=== PATIENT | male | born 1955 | race Caucasian/White ===

== ENCOUNTER 2023-04-28 19:24 | Emergency (ER) | payer OTHER, SELFPAY ==
[2023-04-28] VITALS (9 sets, daily range): BP systolic 126–177; BP diastolic 79–95; PULSE 53–64; RESP 16–18; TEMP 36.8; O2SAT 97–99; BMI 26.6
--- NOTE | 2023-04-28 19:28 | DI.RAD.S_ITS ---
PROCEDURE: XR CHEST 1V INDICATIONS: chest pain TECHNIQUE: One view of the chest was acquired. COMPARISON: None. FINDINGS: Surgical changes and devices: None. Lungs and pleura: Lungs are clear. No pleural effusions or pneumothorax. Mediastinum: Mediastinal contours appear normal. Heart size is normal. Bones and chest wall: No suspicious bony lesions. Overlying soft tissues appear unremarkable. IMPRESSION: 1. No acute cardiopulmonary disease. Dictated by: Arden Cleveland M.D. on 04/28/2023 at 21:02 Approved by: Arden Cleveland M.D. on 04/28/2023 at 21:02
[2023-04-28] MEDS: ASPIRIN 81 MG CHEW TAB 324 MG PO (19:42)
[2023-04-28 20:00] LABS: Add Manual Diff / Slide Review NO; Basophils Absolute Auto 0 /uL (0-100); Basophils Percent Auto 0.7 % (0-2); Eosinophils Absolute Auto 100 /uL (0-450); Eosinophils Percent Auto 1.3 % (2-4); Hematocrit 41.9 % (41-53); Hemoglobin 14.3 g/dL (13.5-17.5); Lymphocytes Absolute Auto 2100 /uL (1100-4500); Lymphocytes Percent Auto 32.9 % (25-40); Mean Corpuscular HGB Conc 34.2 % (30-36); Mean Corpuscular Hemoglobin 29.8 PG (26-34); Mean Corpuscular Volume 87.2 fL (80-100); Monocytes Absolute Auto 600 /uL (0-900); Monocytes Percent Auto 9.4 % (3-14); Neutrophils Absolute Auto 3600 /uL (1500-7000); Neutrophils Percent Auto 55.7 % (50-75); Platelet Count 230 X10^3/uL (150-400); Red Cell Distribution Width 15.1 % (11.6-14.8); White Blood Cell Count 6.4 X10^3/uL (4.5-11.0)
[2023-04-28 20:12] LABS: Prothrombin Time 11.7 SECONDS (10.1-12.7)
[2023-04-28 20:15] LABS: PTT Partial Thromboplastin Tim 30 SECONDS (26-36)
[2023-04-28 20:16] LABS: Alanine Aminotransferase 20 IU/L (<50); Albumin 4.2 g/dL (3.5-5.0); Albumin Globulin Ratio 1.4 (1.0-2.8); Alkaline Phosphatase 49 U/L (38-126); Aspartate Aminotransferase 32 IU/L (17-59); BUN Creatinine Ratio 12.7 (6-22); Bilirubin Total 0.9 mg/dL (0.2-1.3); Blood Urea Nitrogen 15 mg/dL (9-20); Calcium 8.5 mg/dL (8.4-10.2); Carbon Dioxide 27 mmol/L (22-32); Chloride 103 mmol/L (98-107); Creatine Kinase 150 U/L (55-170); Estimated Glomerular Filt Rate > 60 mL/min (>60); Globulin 2.9 g/dL (1.7-4.1); Glucose 79 mg/dL (80-110); HEMOLYSIS 18 (0-50); Lipase 195 U/L (23-300); Magnesium 2.3 mg/dL (1.6-2.3); Potassium 3.9 mmol/L (3.4-5.1); Sodium 136 mmol/L (137-145); Total Protein 7.1 g/dL (6.3-8.2)
[2023-04-28 20:27] LABS: Troponin I < 0.012 ng/mL (0.01-0.034)
--- NOTE | 2023-04-28 21:09 | PC.NURSE ---
Pt's pcp called and was given update.
--- NOTE | 2023-04-28 21:11 | ED_ITS ---
HPI - Chest Pain General Chief Complaint: Chest Pain Stated Complaint: heart attack Time Seen by Provider: 04/28/23 21:11 Source: patient Mode of arrival: Ambulatory History of Present Illness HPI narrative: Patient 68-year-old male history of hypertension presenting today with 3 days of chest discomfort. Actually is very active manda does yoga he actually did 45 minutes abuse today walk 3 miles today. Had no discomfort with exertion he has not needed to be stopped all. Her last 3 days has had some chest discomfort left side of his chest radiating through to his back. Not reproducible with palpation or movement. No significant shortness of breath no nausea or vomiting. He reports that he did travel about 3-4 weeks ago. Today he is also having some discomfort in his left arm and left leg. He does not really call it numbness or tingling he has no weakness. He feels like his left eye heavy but has no loss of vision or foggy vision. He is no difficulty ambulating. [place] apparently [place] boat his primary care provider is at [facility] and has called a handful of times. Related Data Home Medications Medication Instructions Recorded Confirmed evolocumab 140 mg/mL subcutaneous See Rx Instructions .Route .COMPLEX 04/28/23 04/28/23 pen injector (Repatha SureClick) lisinopril 20 mg tablet 40 mg PO DAILY 04/28/23 04/28/23 thyroid (pork) 90 mg tablet (HAT CLEANER 90 mg PO DAILY 04/28/23 04/28/23 Thyroid) Allergies Allergy/AdvReac Type Severity Reaction Status Date / Time No Known Drug Allergies Allergy Verified 04/28/23 19:35 Review of Systems Review of Systems ROS Unobtainable: All systems reviewed & are unremarkable except as noted in HPI and below Patient History Medical History High blood pressure High cholesterol Hypothyroid Exam Initial Vital Signs Initial Vital Signs: Vital Signs Temperature 98.2 F 04/28/23 19:31 Pulse Rate 61 04/28/23 19:31 Respiratory Rate 18 04/28/23 19:31 Blood Pressure 177/95 H 04/28/23 19:31 Pulse Oximetry 98 04/28/23 19:31 Oxygen Delivery Method Room Air 04/28/23 19:31 GENERAL: Well-appearing, well-nourished and in no acute distress. HEENT: Head atraumatic,EOMI, pupils reactive, face symmetric, moist mucous membranes CARDIOVASCULAR: Regular rate and rhythm without murmurs, rubs or gallops. RESPIRATORY: Breath sounds equal bilaterally, no wheezes rales or rhonchi. ABDOMEN: Soft, nontender. Normoactive bowel sounds all 4 quadrants. No guarding or rebound. EXTREMITIES: Normal range of motion, no clubbing or edema. Neurovascularly intact NEUROLOGICAL: Alert and oriented x4.Normal gait and speech. Cranial nerves II through XII grossly intact. Good [id number], good [id number], strength equal bilaterally, no dysarthria or aphasia, sensation in tact to soft touch bilaterally, no visual changes, no facial droop SKIN: Warm, dry, no laceration, no petechiae, no rashes or lesions. Scores HEART Score Heart Score history: Slightly Suspicious Heart Score EKG: Normal Heart Score Age: > or = 65 years old Heart Score risk factors: 1-2 risk factors Heart Score troponin: < or = to normal limit Heart Score Total: 3 NIH Stroke Scale Level of Conciousness: Alert, keenly responsive Ask month/age: Answers both questions correctly. Open/close eyes, close hand: Performs both tasks correctly Best gaze horizontal: Normal Visual leal: No visual loss Facial palsy: Normal symetrical movement Left arm drift: No drift for full 10 sec Right arm drift: No drift for full 10 sec Left leg drift: No drift for full 5 sec Right leg drift: No drift for full 5 sec Limb ataxia: Absent Sensory on face/arms/legs: Normal, no sensory loss Best language: No aphasia, normal Dysarthria: Normal Extinction or inattention: No abnormality Total NIH Stroke scale score: 0 Course Orders Ordered: ED Orders 04/28/23 19:28 XR chest 1V Stat EKG-12 Lead Stat 04/28/23 19:50 Complete Blood Count AUTO DIFF Stat Comprehensive Metabolic Panel Stat D Dimer Stat Lipase Stat Magnesium Stat PTT Partial Thromboplastin Ector Stat Prothrombin Time INR Stat Troponin & CK Cardiac Panel Stat 04/28/23 21:55 Trop I [Troponin I] Stat 04/28/23 22:00 EKG-12 Lead Stat Discontinued Medications Aspirin (Aspirin 81 Mg Chew Tab) 324 mg PO NOW ONE Stop: 04/28/23 19:29 Last Admin: 04/28/23 19:42 Dose: 324 mg Documented By: RAÚL Vital Signs Vital signs: Vital Signs - 8 hr 04/28/23 19:31 04/28/23 19:54 04/28/23 19:58 Temperature 98.2 F Pulse Rate 61 59 L 59 L Respiratory Rate 18 Blood Pressure 177/95 H Pulse Oximetry 98 99 98 Oxygen Delivery Method Room Air 04/28/23 19:58 04/28/23 20:00 04/28/23 20:00 Temperature Pulse Rate 56 L Respiratory Rate 16 Blood Pressure 138/84 141/88 H Pulse Oximetry 98 Oxygen Delivery Method Room Air 04/28/23 20:30 04/28/23 20:30 04/28/23 21:00 Temperature Pulse Rate 53 L Respiratory Rate Blood Pressure 126/79 162/91 H Pulse Oximetry 97 Oxygen Delivery Method Room Air 04/28/23 21:00 04/28/23 21:30 04/28/23 21:30 Temperature Pulse Rate 61 64 Respiratory Rate Blood Pressure 142/93 H Pulse Oximetry 98 99 Oxygen Delivery Method 04/28/23 22:00 04/28/23 22:00 04/28/23 22:30 Temperature Pulse Rate 53 L 53 L Respiratory Rate Blood Pressure 128/81 Pulse Oximetry 97 97 Oxygen Delivery Method MDM - Chest Pain Lab Data 04/28/23 19:50 04/28/23 19:50 Labs: Lab Results 04/28/23 04/28/23 04/28/23 Range/Units 19:50 19:50 19:50 WBC 6.4 (4.5-11.0) X10^3/uL RBC 4.80 (4.5-5.9) X10^6/uL Hgb 14.3 (13.5-17.5) g/dL Hct 41.9 (41-53) % MCV 87.2 (80-100) fL MCH 29.8 (26-34) PG MCHC 34.2 (30-36) % RDW 15.1 H (11.6-14.8) % Plt Count 230 (150-400) X10^3/uL Neut % (Auto) 55.7 (50-75) % Lymph % (Auto) 32.9 (25-40) % Cochran % (Auto) 9.4 (3-14) % Eos % (Auto) 1.3 L (2-4) % Baso % (Auto) 0.7 (0-2) % Neut # (Auto) 3600 (8800-5480) /uL Lymph # (Auto) 2100 (4907-8814) /uL Cochran # (Auto) 600 (0-900) /uL Eos # (Auto) 100 (0-450) /uL Baso # (Auto) 0 (0-100) /uL PT 11.7 (10.1-12.7) SECONDS INR 1.0 (0.9-1.3) APTT 30 (26-36) SECONDS D-Dimer (<500) ng/ml Sodium 136 L (137-145) mmol/L Potassium 3.9 (3.4-5.1) mmol/L Chloride 103 (98-107) mmol/L Carbon Dioxide 27 (22-32) mmol/L BUN 15 (9-20) mg/dL Creatinine 1.18 (0.66-1.25) mg/dL Estimated GFR > 60 (>60) mL/min BUN/Creatinine Ratio 12.7 (6-22) Glucose 79 L (80-110) mg/dL Calcium 8.5 (8.4-10.2) mg/dL Magnesium 2.3 (1.6-2.3) mg/dL Total Bilirubin 0.9 (0.2-1.3) mg/dL AST 32 (17-59) IU/L ALT 20 (<50) IU/L Alkaline Phosphatase 49 (38-126) U/L Total Creatine Kinase 150 (55-170) U/L Troponin I < 0.012 (0.01-0.034) ng/mL Total Protein 7.1 (6.3-8.2) g/dL Albumin 4.2 (3.5-5.0) g/dL Globulin 2.9 (1.7-4.1) g/dL Albumin/Globulin Ratio 1.4 (1.0-2.8) Lipase 195 (23-300) U/L 04/28/23 04/28/23 Range/Units 19:50 21:55 WBC (4.5-11.0) X10^3/uL RBC (4.5-5.9) X10^6/uL Hgb (13.5-17.5) g/dL Hct (41-53) % MCV (80-100) fL MCH (26-34) PG MCHC (30-36) % RDW (11.6-14.8) % Plt Count (150-400) X10^3/uL Neut % (Auto) (50-75) % Lymph % (Auto) (25-40) % Cochran % (Auto) (3-14) % Eos % (Auto) (2-4) % Baso % (Auto) (0-2) % Neut # (Auto) (8496-8795) /uL Lymph # (Auto) (9982-9810) /uL Cochran # (Auto) (0-900) /uL Eos # (Auto) (0-450) /uL Baso # (Auto) (0-100) /uL PT (10.1-12.7) SECONDS INR (0.9-1.3) APTT (26-36) SECONDS D-Dimer < 215 (<500) ng/ml Sodium (137-145) mmol/L Potassium (3.4-5.1) mmol/L Chloride (98-107) mmol/L Carbon Dioxide (22-32) mmol/L BUN (9-20) mg/dL Creatinine (0.66-1.25) mg/dL Estimated GFR (>60) mL/min BUN/Creatinine Ratio (6-22) Glucose (80-110) mg/dL Calcium (8.4-10.2) mg/dL Magnesium (1.6-2.3) mg/dL Total Bilirubin (0.2-1.3) mg/dL AST (17-59) IU/L ALT (<50) IU/L Alkaline Phosphatase (38-126) U/L Total Creatine Kinase (55-170) U/L Troponin I < 0.012 (0.01-0.034) ng/mL Total Protein (6.3-8.2) g/dL Albumin (3.5-5.0) g/dL Globulin (1.7-4.1) g/dL Albumin/Globulin Ratio (1.0-2.8) Lipase (23-300) U/L Imaging Data Chest x-ray: Radiologist's Impression: PROCEDURE:? XR CHEST 1V ? INDICATIONS:? chest pain ? TECHNIQUE:? One view of the chest was acquired.? ? COMPARISON:? None. ? FINDINGS:? ? Surgical changes and devices:? None.? ? Lungs and pleura:? Lungs are clear.? No pleural effusions or pneumothorax.? ? Mediastinum:? Mediastinal contours appear normal.? Heart size is normal.? ? Bones and chest wall:? No suspicious bony lesions.? Overlying soft tissues appear unremarkable.? ? IMPRESSION:? ? 1.? No acute cardiopulmonary disease. ? ? ? Dictated by: Arden Cleveland M.D. on 04/28/2023 at 21:02 ? ? ECG Data Interpretation: Sinus rhythm rate 59 MD interval 182 QRS [address] changes no T-wave inversions EKG 2. Sinus rhythm rate [address] changes MDM Narrative Medical decision making narrative: Patient very active 68-year-old male presents today with normal chest discomfort and some arm and leg pain. Here for cardiac rule out also concern for questionable CVA. However he is really describing his arm is leg as painful or an ache not necessarily numbness tingling or weakness. He is NIH stroke scale 0. Less concern for CVA or TIA. Really having chest discomfort. He is 2- troponins normal EKGs D-dimer was also undetectable making pulmonary embolism unlikely. Possible musculoskeletal strain with how active he is. He clearly has a very involved primary care provider she is called here handful of times and spoken with patient while he is in the ED. he has outpatient appointment with her scheduled in 2 days. Use a low risk heart score of 3 and NIH stroke scale of 0. This time seem reasonable to discharge home. He is quite anxious to leave. Discharge Plan Departure Patient Disposition: Home Clinical Impression: Atypical chest pain Instructions: DI for Atypical Chest Pain Activity Restrictions/Additional Instructions: *You have been diagnosed with atypical chest pain *What to do: At this time your blood work in the ED is negative. Please follow-up with your primary care provider as scheduled on Friday *Continue to take medications as directed *Follow up with your primary care provider in 2-3 days or call [phone] *Return to ER if you should have increasing chest pain weakness numbness tingling shortness of breath or any new, worsening or concerning symptoms Prescriptions: No Action lisinopril 20 mg tablet 40 mg PO DAILY Patient Comments: take 2 tablets by mouth once daily HAT CLEANER Thyroid 90 mg tablet 90 mg PO DAILY Patient Comments: take 1 tablet by mouth once daily Repatha SureClick 140 mg/mL pen injector See Rx Instructions .ROUTE .COMPLEX Patient Comments: ADMINISTER 1 ML UNDER THE SKIN EVERY 14 DAYS Rx Instructions: Administer 1 ml under the skin every 14 days Stand Alone Forms: Patient Portal/API
[2023-04-28 22:13] LABS: D Dimer < 215 ng/ml (<500)
[2023-04-28 22:28] LABS: Troponin I < 0.012 ng/mL (0.01-0.034)
== END 2023-04-28 22:54 | disposition home or self-care (01) ==
PROVIDERS: Emergency Provider Emergency Medicine
DX: R07.89 Other chest pain (principal)
CPT/HCPCS: 36415; 71045; 80053; 82550; 83690; 83735; 84484; 85025; 85379; 85610; 85730; 93005; 93010; 99284